=== PATIENT | male | born 1970 | race African-American/Black ===

== ENCOUNTER 2018-04-25 16:05 | Emergency (ER) | payer MEDICARE, MEDICAID ==
[2018-04-25 17:23] LABS: ALT (SGPT) 8 U/L (8-55); AST (SGOT) 11 U/L (5-34); Albumin 4.1 g/dL (3.5-5.0); Alkaline Phosphatase 109 U/L (40-150); Anion Gap 18 mmol/L (10-20); BUN (Urea Nitrogen) 32 mg/dL (8.9-20.6); Bilirubin, Total 0.4 mg/dL (0.2-1.2); Calc. Creatinine Clearance 0 mL/min (70-130); Carbon Dioxide 24 mmol/L (22-29); Chloride 97 mmol/L (98-107); Estimated GFR-MDRD 6; Globulin 4.5 g/dL (2.4-3.5); Glucose 103 mg/dL (70-105); Lipase 203 U/L (8-78); Potassium 4.8 mmol/L (3.5-5.1); Protein, Total 8.6 g/dL (6.0-8.3); Sodium 134 mmol/L (136-145)
[2018-04-25 17:31] LABS: #Eosinphils 0.4 thou/uL (0.0-0.7); #Lymphocytes 1.4 thou/uL (1.20-3.40); #Monocytes 0.6 thou/uL (0.11-0.59); #Neutrophils 4.1 thou/uL (1.40-6.50); %Basophils 0.4 % (0.0-1.0); %Eosinophils 6.8 % (0.0-10.0); %Lymphocytes 21.3 % (21.0-51.0); %Monocytes 8.6 % (0.0-10.0); %Neutrophils 62.9 % (42.0-75.0); Anisocytosis SLIGHT = 6-15 cells (100X) (0-5/hpf); Hemoglobin 15.2 g/dL (14.0-18.0); Macrocytosis SLIGHT = 6-15 cells (100X) (0-5/hpf); Mean Corpuscular HGB CONC 32.9 g/dL (32.0-36.0); Mean Corpuscular Hemoglobin 34.7 pg (27.0-31.0); Mean Platelet Volume 8.1 fL (7.4-10.4); PLT Morphology Comment Appears Decreased; Platelet Count 104 thou/uL (130-400); RBC Distribution Width 15.4 % (11.5-14.5); Red Blood Cell (RBC) Count 4.37 mill/uL (4.70-6.10); White Blood Cell (WBC) Count 6.5 thou/uL (4.8-10.8)
[2018-04-25] MEDS ORDERED: Lidocaine Viscous Sol 2% 15 ml UD Cup ONE (17:39)
[2018-04-25] MEDS ORDERED: Mag-Al 1200 mg/1200 mg/30 ML UDCUP ONE (17:39)
[2018-04-25 18:02] LABS: CKMB 1.9 ng/mL (0-6.6); Troponin I 0.046 ng/mL (< 0.028)
== END 2018-04-25 19:15 | disposition home or self-care (01) ==
LOC: ERS 16:05
DX: R10.13 Epigastric pain (principal); I12.0 Hypertensive chronic kidney disease with stage 5 chronic kidney disease or end stage renal disease; N18.6 End stage renal disease; J44.9 Chronic obstructive pulmonary disease, unspecified; F17.210 Nicotine dependence, cigarettes, uncomplicated; Z99.2 Dependence on renal dialysis; Z79.899 Other long term (current) drug therapy
CPT/HCPCS: 36415; 80053; 82550; 82553; 83690; 84484; 85025; 93005

== ENCOUNTER 2018-06-27 20:02 | Emergency (ER) | payer MEDICARE, MEDICAID ==
[2018-06-27 23:01] LABS: ALT (SGPT) 8 U/L (8-55); AST (SGOT) 16 U/L (5-34); Albumin 4.2 g/dL (3.5-5.0); Alkaline Phosphatase 90 U/L (40-150); Anion Gap 21 mmol/L (10-20); BUN (Urea Nitrogen) 38 mg/dL (8.9-20.6); Bilirubin, Total 0.9 mg/dL (0.2-1.2); Calc. Creatinine Clearance 0 mL/min (70-130); Calcium 9.9 mg/dL (7.8-10.44); Carbon Dioxide 22 mmol/L (22-29); Chloride 93 mmol/L (98-107); Estimated GFR-MDRD 5; Glucose 63 mg/dL (70-105); Lipase 27 U/L (8-78); Potassium 4.8 mmol/L (3.5-5.1); Protein, Total 9.2 g/dL (6.0-8.3); Sodium 131 mmol/L (136-145)
--- NOTE | 2018-06-27 23:11 | CT ---
CT ABDOMEN AND PELVIS WITHOUT CONTRAST: 06/27/18 HISTORY: Left sided abdominal pain. Patient went to dialysis yesterday. FINDINGS: Comparison made with exam of 09/15/16. Absence of oral and IV contrast reduces the sensitivity of the exam, particularly for evaluation of s olid organs and bowel. A calcified granuloma in the right middle lobe is again seen. The patient is post cholecystectomy. Ca lcified granuloma is also noted in the spleen. Changes of bilateral polycystic kidney disease again n oted. Approximately 2 cm hypodense lesion in the posterior aspect of the left kidney is stable. No fr ee air or free fluid is seen in the abdomen or pelvis. There are vascular calcifications without evid ence of aneurysmal dilatation of the abdominal aorta. IVC filter is again noted. There is fluid in th e colon and rectum. Pericolic inflammatory changes seen in the left lower quadrant. There are mild de generative changes in the spine. IMPRESSION: Findings consistent with colitis in the left lower quadrant. POS: [facility]
[2018-06-27] MEDS ORDERED: Ciprofloxacin 500 MG TAB ONE (23:42)
[2018-06-27] MEDS ORDERED: metroNIDAZOLE 250 MG TAB ONE (23:42)
== END 2018-06-27 23:55 | disposition home or self-care (01) ==
LOC: ERS 20:02
DX: K52.9 Noninfective gastroenteritis and colitis, unspecified (principal); I12.0 Hypertensive chronic kidney disease with stage 5 chronic kidney disease or end stage renal disease; N18.6 End stage renal disease; J44.9 Chronic obstructive pulmonary disease, unspecified; Z99.2 Dependence on renal dialysis; Z79.899 Other long term (current) drug therapy
CPT/HCPCS: 74176; 80053; 83690

== ENCOUNTER 2018-07-21 08:10 | Emergency (ER) | payer MEDICARE, MEDICAID ==
--- NOTE | 2018-07-21 10:40 | RAD ---
LEFT KNEE 4 VIEWS: HISTORY: Injury, left knee pain. FINDINGS/IMPRESSION: No fracture or dislocation is seen. POS: [facility]
== END 2018-07-21 09:26 | disposition home or self-care (01) ==
LOC: ERS 08:10
DX: S86.912A Strain of unspecified muscle(s) and tendon(s) at lower leg level, left leg, initial encounter (principal); I12.0 Hypertensive chronic kidney disease with stage 5 chronic kidney disease or end stage renal disease; N18.6 End stage renal disease; Z99.2 Dependence on renal dialysis; F17.210 Nicotine dependence, cigarettes, uncomplicated; J44.9 Chronic obstructive pulmonary disease, unspecified; Z79.899 Other long term (current) drug therapy; W18.30XA Fall on same level, unspecified, initial encounter

== ENCOUNTER 2019-05-24 00:05 | Emergency (ER) | payer MEDICARE, MEDICAID ==
--- NOTE | 2019-05-24 07:51 | RAD ---
EXAM: XR Foot Lt 3 View STANDARD PROVIDED CLINICAL HISTORY: Pain FINDINGS: There is no evidence for fracture or other acute osseous abnormality. Alignment appears anatomic. Radha nt spaces appear preserved. Vascular calcifications are seen. Small plantar and posterior calcaneal enthesophytes. IMPRESSION: No evidence for an acute osseous abnormality. If there is persistent clinical concern, conservative m anagement and follow-up imaging advised.
== END 2019-05-24 03:00 | disposition home or self-care (01) ==
LOC: ERS 00:05
DX: M79.672 Pain in left foot (principal); I12.0 Hypertensive chronic kidney disease with stage 5 chronic kidney disease or end stage renal disease; N18.6 End stage renal disease; J44.9 Chronic obstructive pulmonary disease, unspecified; F17.210 Nicotine dependence, cigarettes, uncomplicated; Z79.899 Other long term (current) drug therapy

== ENCOUNTER 2019-08-14 15:17 | Emergency (ER) | payer MEDICARE, MEDICAID ==
[2019-08-14] MEDS ORDERED: Dexamethasone 10 MG/ML VIAL ONE (16:02)
[2019-08-14] MEDS ORDERED: diphenhydrAMINE 25 MG CAP ONE (16:02)
== END 2019-08-14 16:46 | disposition home or self-care (01) ==
LOC: ERS 15:17
DX: T78.40XA Allergy, unspecified, initial encounter (principal); F32.9 Major depressive disorder, single episode, unspecified; I12.0 Hypertensive chronic kidney disease with stage 5 chronic kidney disease or end stage renal disease; N18.6 End stage renal disease; F17.210 Nicotine dependence, cigarettes, uncomplicated
CPT/HCPCS: 99283; J1100; Q0163

== ENCOUNTER 2019-09-22 10:39 | Emergency (ER) | payer MEDICARE, MEDICAID ==
[2019-09-22 11:43] LABS: #Eosinphils 0.2 thou/uL (0.0-0.7); #Lymphocytes 1.5 thou/uL (1.20-3.40); #Monocytes 0.6 thou/uL (0.11-0.59); #Neutrophils 5.1 thou/uL (1.40-6.50); %Basophils 0.2 % (0.0-1.0); %Eosinophils 2.9 % (0.0-10.0); %Lymphocytes 20.5 % (21.0-51.0); %Monocytes 7.6 % (0.0-10.0); %Neutrophils 68.8 % (42.0-75.0); Hemoglobin 11.8 g/dL (14.0-18.0); Mean Corpuscular HGB CONC 33.3 g/dL (32.0-36.0); Mean Corpuscular Hemoglobin 33.5 pg (27.0-31.0); Mean Platelet Volume 8.9 fL (7.4-10.4); Platelet Count 148 thou/uL (130-400); RBC Distribution Width 15.2 % (11.5-14.5); Red Blood Cell (RBC) Count 3.53 mill/uL (4.70-6.10); White Blood Cell (WBC) Count 7.4 thou/uL (4.8-10.8)
--- NOTE | 2019-09-22 11:51 | RAD ---
PORTABLE CHEST 1 VIEW: Date: 09/22/2019 Time: 1125 hours HISTORY: Shortness of breath and dialysis. FINDINGS: Comparison made with exam of 11/12/16. The heart size is enlarged. Right-sided dialysis catheter and right vascular stents are again seen. T he lungs are well expanded without lobar consolidation, pneumothoraces, sami pulmonary edema, or ple ural effusions. IMPRESSION: No acute process. POS: [facility]
[2019-09-22 12:19] LABS: ALT (SGPT) 14 U/L (8-55); AST (SGOT) 11 U/L (5-34); Albumin 3.8 g/dL (3.5-5.0); Alkaline Phosphatase 105 U/L (40-110); Anion Gap 18 mmol/L (10-20); BUN (Urea Nitrogen) 31 mg/dL (8.9-20.6); Bilirubin, Total 0.3 mg/dL (0.2-1.2); CK (CPK) 88 U/L (30-200); Calc. Creatinine Clearance 0 mL/min (70-130); Calcium 9.3 mg/dL (7.8-10.44); Carbon Dioxide 25 mmol/L (22-29); Chloride 97 mmol/L (98-107); Estimated GFR-MDRD 6; Glucose 95 mg/dL (70-105); Potassium 4.5 mmol/L (3.5-5.1); Protein, Total 7.8 g/dL (6.0-8.3); Sodium 135 mmol/L (136-145)
== END 2019-09-22 13:35 | disposition home or self-care (01) ==
LOC: ERS 10:39
DX: I12.0 Hypertensive chronic kidney disease with stage 5 chronic kidney disease or end stage renal disease (principal); N18.6 End stage renal disease; F32.9 Major depressive disorder, single episode, unspecified; F17.210 Nicotine dependence, cigarettes, uncomplicated; Z99.2 Dependence on renal dialysis; Z79.899 Other long term (current) drug therapy
CPT/HCPCS: 71045; 80053; 82550; 83880; 85025; 93005

== ENCOUNTER 2019-12-08 22:57 | Emergency (ER) | payer MEDICAID, MEDICARE ==
--- NOTE | 2019-12-08 23:26 | CT ---
CT BRAIN NONCONTRAST: DATE: 12/08/2019 HISTORY: 49-year-old male with left facial droop. Dr. Marsh verbally gave this stroke alert protocol report by telephone to ER physician Dr. Wagner at 1 1:23 PM 12/08/2019 FINDINGS: There is no evidence of acute intra-axial or extra-axial hemorrhage. There is no midline shift or any other mass effect. There is no extra-axial fluid collection. There is no evidence of obstructive hydrocephalus. Calvarium is intact. IMPRESSION: No acute intracranial findings.
--- NOTE | 2019-12-08 23:37 | RAD ---
RADIOGRAPH CHEST 1 VIEW: DATE: 12/08/2019 HISTORY: 49-year-old male with "motor deficits" COMPARISON: 09/22/2019 FINDINGS: There is no airspace density, pulmonary edema, or pneumothorax. The lateral costophrenic angles are n ot effaced. Right IJ double lumen dialysis catheter. Right-sided venous stents. No interval change. IMPRESSION: 1. No acute pulmonary findings. 2. Evidence for end-stage renal disease.
[2019-12-09 00:22] LABS: Hemoglobin 12.8 g/dL (14.0-18.0); Mean Corpuscular Hemoglobin 33.7 pg (27.0-31.0); RBC Distribution Width 14.9 % (11.5-14.5); Red Blood Cell (RBC) Count 3.81 mill/uL (4.70-6.10); White Blood Cell (WBC) Count 4.6 thou/uL (4.8-10.8)
[2019-12-09 00:36] LABS: #Eosinphils 0.1 thou/uL (0.0-0.7); #Monocytes 0.4 thou/uL (0.11-0.59); %Basophils 0.5 % (0.0-1.0); %Eosinophils 2.5 % (0.0-10.0); %Lymphocytes 22.3 % (21.0-51.0); %Monocytes 9.5 % (0.0-10.0); %Neutrophils 65.1 % (42.0-75.0); Mean Platelet Volume 8.3 fL (7.4-10.4); Platelet Count 110 thou/uL (130-400); Platelet Morphology Comment Appears Decreased
[2019-12-09 00:50] LABS: ALT (SGPT) Less than 7 U/L (8-55); AST (SGOT) 10 U/L (5-34); Albumin 4.3 g/dL (3.5-5.0); Alkaline Phosphatase 90 U/L (40-110); Anion Gap 18 mmol/L (10-20); BUN (Urea Nitrogen) 28 mg/dL (8.9-20.6); Bilirubin, Total 0.5 mg/dL (0.2-1.2); Calc. Creatinine Clearance 0 mL/min (70-130); Calcium 9.4 mg/dL (7.8-10.44); Carbon Dioxide 29 mmol/L (22-29); Chloride 95 mmol/L (98-107); Estimated GFR-MDRD 8; Globulin 4.1 g/dL (2.4-3.5); Glucose 86 mg/dL (70-105); Potassium 4.1 mmol/L (3.5-5.1); Protein, Total 8.4 g/dL (6.0-8.3); Sodium 138 mmol/L (136-145)
[2019-12-09 01:06] LABS: CKMB 2.3 ng/mL (0-6.6)
== END 2019-12-09 01:03 | disposition home or self-care (01) ==
LOC: ERS 22:57
DX: G51.0 Bell's palsy (principal); I12.0 Hypertensive chronic kidney disease with stage 5 chronic kidney disease or end stage renal disease; N18.6 End stage renal disease; J44.9 Chronic obstructive pulmonary disease, unspecified; Z99.2 Dependence on renal dialysis; F32.9 Major depressive disorder, single episode, unspecified; F17.210 Nicotine dependence, cigarettes, uncomplicated
CPT/HCPCS: 36415; 36416; 70450; 71045; 80053; 82553; 84484; 85025

== ENCOUNTER 2024-09-02 14:32 | Emergency (ER) | payer OTHER, MEDICAID ==
[2024-09-02 16:04] LABS: #Basophils Less than 0.03 10x3/uL (0.0-0.2); %Basophils 0.2 % (0.0-1.0); %Eosinophils 1.2 % (0.0-10.0); %Lymphocytes 13.3 % (21.0-51.0); %Monocytes 6.6 % (0.0-10.0); Hemoglobin 12.8 g/dL (14.0-18.0); Mean Corpuscular HGB CONC 31.2 g/dL (32.0-36.0); Mean Corpuscular Hemoglobin 30.3 pg (27.0-31.0); Mean Corpuscular Volume 96.9 fL (78.0-98.0); Mean Platelet Volume 9.7 fL (7.4-10.4); Platelet Count 126 10x3/uL (130-400); RBC Distribution Width 17.1 % (11.5-14.5); Red Blood Cell (RBC) Count 4.23 mill/uL (4.70-6.10)
[2024-09-02] MEDS ORDERED: Acetaminophen 325 MG TAB ONE (16:08)
[2024-09-02] MEDS ORDERED: Cefepime 2 GM VIAL ONE (16:08)
[2024-09-02] MEDS ORDERED: Sodium Chloride 0.9% 100 ML ONE (16:09)
[2024-09-02 16:14] LABS: ALT (SGPT) 5 U/L (8-55); AST (SGOT) 13 U/L (5-34); Albumin 3.3 g/dL (3.5-5.0); Alkaline Phosphatase 141 U/L (40-110); Anion Gap 16 mmol/L (10-20); BUN (Urea Nitrogen) 27 mg/dL (8.4-25.7); Bilirubin, Total 0.4 mg/dL (0.2-1.2); Calc. Creatinine Clearance 0 mL/min (70-130); Calcium 9.4 mg/dL (7.8-10.44); Carbon Dioxide 22 mmol/L (22-29); Chloride 99 mmol/L (98-107); Estimated GFR 7; Globulin 5.3 g/dL (2.4-3.5); Glucose 84 mg/dL (70-105); Magnesium 2.3 mg/dL (1.6-2.6); Potassium 4.1 mmol/L (3.5-5.1); Protein, Total 8.6 g/dL (6.0-8.3); Sodium 133 mmol/L (136-145)
[2024-09-02 16:18] LABS: Prothrombin Time 13.6 sec (12.0-14.7)
[2024-09-02 16:19] LABS: PTT 39.8 sec (22.9-36.1)
[2024-09-02] MEDS ORDERED: Midodrine HCl 5 MG TAB PO SCH (16:30)
[2024-09-02] MEDS ORDERED: Morphine 4 MG/ML VIAL ONE (17:02)
[2024-09-02] MEDS ORDERED: Vancomycin (BATCH) 2 GM/500 ML BAG ONE (17:29)
[2024-09-02] MEDS ORDERED: Vancomycin (BATCH) 2 GM in Premix 1 BAG IVPB SCH (17:30)
== END 2024-09-02 22:53 | disposition short-term general hospital (02) ==
LOC: ERS 14:32
DX: E11.69 Type 2 diabetes mellitus with other specified complication (principal); M86.9 Osteomyelitis, unspecified; F17.210 Nicotine dependence, cigarettes, uncomplicated; J44.9 Chronic obstructive pulmonary disease, unspecified; I12.0 Hypertensive chronic kidney disease with stage 5 chronic kidney disease or end stage renal disease; E11.22 Type 2 diabetes mellitus with diabetic chronic kidney disease; N18.6 End stage renal disease; Z99.2 Dependence on renal dialysis
CPT/HCPCS: 73630; 80053; 83605; 83735; 85025; 85610; 85730; 87040; 87070; 87205; 94760; J0692; J2272; J3370; 36415; 96365; 96367; 96375